=== PATIENT | female | born 1930 | race Caucasian/White ===

== ENCOUNTER 2016-09-09 15:16 | Outpatient (CLI) | payer MEDICARE, OTHER ==
[2016-09-09 16:41] LABS: MEAN CORPUSCULAR VOLUME 91.7 fl (80.0-100.0)
[2016-09-09 16:42] LABS: BASOPHILS % 0.4 (0.0-1.5); EOSINOPHILS % 1.2 % (0.0-6.8); NEUTROPHILS # 3.1 # k/uL (1.4-7.7)
[2016-09-09 17:04] LABS: eGFR (African) > 60; eGFR (Non-African) > 60
== END 2016-09-09 15:17 ==
LOC: LAB 15:16
PROVIDERS: ATTEND Physician Assistant
DX: R14.0 Abdominal distension (gaseous) (principal)
CPT/HCPCS: 36415; 80053; 85025

== ENCOUNTER 2017-06-26 12:14 | Outpatient (CLI) | payer MEDICARE, OTHER | END 2017-06-26 12:15 | LOC: LABRHC 12:14 | PROVIDERS: ATTEND Family Medicine | DX: R30.0 Dysuria (principal) | CPT/HCPCS: 87086 ==

== ENCOUNTER 2017-07-25 08:51 | Outpatient (CLI) | payer MEDICARE, OTHER | END 2017-07-25 09:00 | LOC: OUT 08:51 | PROVIDERS: ATTEND General Practice | DX: N95.2 Postmenopausal atrophic vaginitis (principal) | CPT/HCPCS: G0463 ==

== ENCOUNTER 2017-09-19 08:52 | Outpatient (CLI) | payer MEDICARE, OTHER | END 2017-09-19 08:53 | LOC: OUT 08:52 | PROVIDERS: ATTEND General Practice | DX: N95.2 Postmenopausal atrophic vaginitis (principal); L68.0 Hirsutism | CPT/HCPCS: G0463 ==